=== PATIENT | male | born 1985 | race Hispanic/Latino ===

== ENCOUNTER 2021-07-04 09:43 | Inpatient (IN) | payer SELFPAY ==
[2021-07-04] VITALS (10 sets, daily range): BP systolic 135–185; BP diastolic 84–140
[~2021-07-04] VITALS: Ht 175.3 cm; Wt 108.4 kg
[2021-07-04] MEDS ORDERED: ASPIRIN 81MG CHEW TAB ONE (09:56)
[2021-07-04] MEDS ORDERED: NITROGLYCERIN 50MG/D5W 250ML 1 BOT ONE (09:59)
[2021-07-04 10:01] LABS: BASOPHILS % (AUTO) 0.4 % (0.0-5.0); LYMPHOCYTES % (AUTO) 26.9 % (21.0-51.0); MEAN CORPUSCULAR HEMOGLOBIN 29.5 pg (27.0-33.0); MEAN CORPUSCULAR VOLUME 86.8 fL (79-99); MONOCYTES % (AUTO) 5.6 % (3.0-13.0); NEUTROPHILS % (AUTO) 61.6 % (40.0-77.0); PLATELET COUNT (AUTO) 355 K/uL (130-400); RED BLOOD CELL COUNT(AUTO) 4.84 MIL/uL (4.50-6.20); RED CELL DISTRIBUTION WIDTH 13.2 % (11.0-15.5); WHITE BLOOD COUNT (AUTO) 10.4 K/uL (4.8-10.8)
[2021-07-04] MEDS: ASPIRIN 81MG CHEW TAB PO SCH (10:08)
[2021-07-04] MEDS: NITROGLYCERIN 50MG/D5W 250ML 250 BOT IV SCH ×2 (10:09→23:00)
[2021-07-04 10:13] LABS: CREATININE 1.2 mg/dL (0.5-1.5); POTASSIUM 3.6 mmol/L (3.5-5.1)
[2021-07-04 10:15] LABS: INR 0.95 (0.85-1.15); PROTHROMBIN TIME 10.4 SEC (9.6-11.6)
[2021-07-04 10:16] LABS: PARTIAL THROMBOPLASTIN TIME 26.5 SEC (26.3-35.5)
[2021-07-04 10:18] LABS: ALBUMIN 3.8 g/dL (3.5-5.0); BILIRUBIN,TOTAL 0.2 mg/dL (0.2-1.0); TOTAL PROTEIN, SERUM 7.4 g/dL (6.0-8.3)
[2021-07-04 10:28] LABS: B-TYPE NATRIURETIC PEPTIDE 88 pg/mL (0-100)
[2021-07-04 12:15] LABS: AMPHET/METH SCREEN,URINE NEGATIVE (NEGATIVE); BARBITURATE SCREEN, URINE NEGATIVE (NEGATIVE); BENZODIAZEPINES SCREEN,URINE NEGATIVE (NEGATIVE); CANNABINOID SCREEN,URINE POSITIVE (NEGATIVE); COCAINE SCREEN,URINE POSITIVE (NEGATIVE); OPIATE SCREEN,URINE NEGATIVE (NEGATIVE); PHENCYCLIDINE SCREEN,URINE NEGATIVE (NEGATIVE)
[2021-07-04 12:22] LABS: APPEARANCE,URINE Clear (CLEAR); BILIRUBIN,URINE Negative (NEGATIVE); COLOR,URINE Yellow (YELLOW); GLUCOSE, URINE (UA) Negative (NEGATIVE); KETONES,URINE Negative (NEGATIVE); LEUKOCYTE ESTERASE ,URINE Negative (NEGATIVE); NITRATE,URINE Negative (NEGATIVE); OCCULT BLOOD,URINE Negative (NEGATIVE); PROTEIN,URINE Negative (NEGATIVE); UROBILINOGEN,URINE 0.2 mg/dL (0.2-1.0)
[2021-07-04 12:34] LABS: HEMOGLOBIN A1C 5.6 % (4.0-6.0)
[2021-07-04] MEDS: ATORVASTATIN 20 MG TABLET PO SCH (20:14)
[2021-07-04] MEDS ORDERED: HYDROCODONE/ACETAMINOPHEN 5/325 MG TAB PO ONE (22:30)
[2021-07-05] VITALS (32 sets, daily range): BP systolic 122–184; BP diastolic 79–116
[2021-07-05 05:45] LABS: BASOPHILS % (AUTO) 0.4 % (0.0-5.0); EOSINOPHILS % (AUTO) 0.9 % (0.0-8.0); HEMATOCRIT 39.1 % (42-54); LYMPHOCYTES % (AUTO) 18.3 % (21.0-51.0); MEAN CORPUSCULAR HEMOGLOBIN 29.5 pg (27.0-33.0); MEAN CORPUSCULAR VOLUME 86.7 fL (79-99); MONOCYTES % (AUTO) 5.3 % (3.0-13.0); NEUTROPHILS % (AUTO) 74.8 % (40.0-77.0); PLATELET COUNT (AUTO) 337 K/uL (130-400); RED BLOOD CELL COUNT(AUTO) 4.51 MIL/uL (4.50-6.20); RED CELL DISTRIBUTION WIDTH 13.3 % (11.0-15.5); WHITE BLOOD COUNT (AUTO) 14.3 K/uL (4.8-10.8)
[2021-07-05 05:52] LABS: CREATININE 1.1 mg/dL (0.5-1.5); POTASSIUM 3.2 mmol/L (3.5-5.1)
[2021-07-05] MEDS ORDERED: KCL 20 MEQ ERTAB PO PRN (06:30)
[2021-07-05] MEDS: POTASSIUM CHLORIDE 10% ELIXIR 20 MEQ/15 ML UDCUP PO PRN ×2 (08:12→10:47)
[2021-07-05] MEDS: ASPIRIN 81MG CHEW TAB PO SCH (08:13)
[2021-07-05] MEDS: ASPIRIN 81 MG EC TAB PO SCH (08:13)
[2021-07-05] MEDS: LABETALOL HCL 200 MG TABLET PO SCH ×2 (09:16→19:55)
[2021-07-05] MEDS: LABETALOL 20MG SYG IV PRN (13:59)
[2021-07-05] MEDS: ATORVASTATIN 20 MG TABLET PO SCH (19:55)
[2021-07-06] VITALS (8 sets, daily range): BP systolic 144–172; BP diastolic 87–115
[2021-07-06] MEDS: LABETALOL 20MG SYG IV PRN (06:46)
[2021-07-06] MEDS: ASPIRIN 81MG CHEW TAB PO SCH (07:32)
[2021-07-06] MEDS: ASPIRIN 81 MG EC TAB PO SCH (08:16)
[2021-07-06] MEDS ORDERED: HYDRALAZINE 25MG TABLET PO SCH (09:00)
[2021-07-06] MEDS ORDERED: AMLODIPINE 5 MG TAB PO SCH (09:00)
[2021-07-06] MEDS: LABETALOL HCL 200 MG TABLET PO SCH (09:42)
[2021-07-06] MEDS ORDERED: LABETALOL HCL 100 MG TABLET PO SCH (21:00)
== END 2021-07-06 10:45 | disposition left against medical advice (07) | DRG 305 ==
LOC: EDH 09:43 → EDHIP 09:44 → 2DH 07-05 07:15
PROVIDERS: ADMIT Hospitalist; ATTEND Hospitalist
DX: I16.1 Hypertensive emergency (principal); F14.10 Cocaine abuse, uncomplicated; F12.10 Cannabis abuse, uncomplicated; E66.9 Obesity, unspecified; I11.9 Hypertensive heart disease without heart failure; E87.6 Hypokalemia; F17.210 Nicotine dependence, cigarettes, uncomplicated; Z68.35 Body mass index [BMI] 35.0-35.9, adult; Z79.899 Other long term (current) drug therapy; Z91.19 Patient's noncompliance with other medical treatment and regimen; Z88.8 Allergy status to other drugs, medicaments and biological substances
CPT/HCPCS: 36415; 71045; 80048; 80053; 80061; 80305; 81003; 82550; 83036; 83735; 83874; 83880; 84443; 84484; 85025; 85610; 85730; 93005; 99291; G0378; J3490

== ENCOUNTER 2022-12-19 17:58 | Emergency (ER) | payer BC, OTHER ==
[~2022-12-19] VITALS: Ht 172.7 cm; Wt 104.3 kg
[2022-12-19 19:15] LABS: APPEARANCE,URINE CLEAR (CLEAR); BILIRUBIN,URINE NEGATIVE (NEGATIVE); COLOR,URINE LIGHT-YELLOW (YELLOW); GLUCOSE, URINE (UA) NEGATIVE (NEGATIVE); KETONES,URINE NEGATIVE (NEGATIVE); LEUKOCYTE ESTERASE ,URINE NEGATIVE Leu/uL (NEGATIVE); NITRATE,URINE NEGATIVE (NEGATIVE); OCCULT BLOOD,URINE NEGATIVE (NEGATIVE); PH,URINE 5.5 (5.0-8.0); PROTEIN,URINE NEGATIVE (NEGATIVE); UROBILINOGEN,URINE 0.2 mg/dL (0.2-1.0)
[2022-12-19 19:19] LABS: MUCUS,URINE RARE LPF (None Seen); SQUAMOUS EPITHELIAL CELL,UR RARE /HPF (0-2); WBC,URINE 0-1 /HPF (0-1)
[2022-12-19 19:28] LABS: BASOPHILS % (AUTO) 0.3 % (0.0-5.0); EOSINOPHILS % (AUTO) 0.5 % (0.0-8.0); HEMATOCRIT 40.7 % (42-54); LYMPHOCYTES % (AUTO) 14.2 % (21.0-51.0); MEAN CORPUSCULAR HEMOGLOBIN 29.8 pg (27.0-33.0); MEAN CORPUSCULAR HGB CONC 33.7 g/dL (32.0-36.0); MEAN CORPUSCULAR VOLUME 88.5 fL (79-99); MONOCYTES % (AUTO) 3.5 % (3.0-13.0); PLATELET COUNT (AUTO) 286 K/uL (130-400); RED CELL DISTRIBUTION WIDTH 12.9 % (11.0-15.5); WHITE BLOOD COUNT (AUTO) 11.9 K/uL (4.8-10.8)
[2022-12-19 19:30] LABS: CREATININE 1.3 mg/dL (0.5-1.5); POTASSIUM 3.5 mmol/L (3.5-5.1)
[2022-12-19] MEDS ORDERED: NITROGLYCERIN 0.4 MG SL TAB SL PRN (19:30)
[2022-12-19 19:31] LABS: INR 1.02 (0.85-1.15); PROTHROMBIN TIME 11.1 SEC (9.6-11.6)
[2022-12-19 19:39] LABS: ALBUMIN 3.8 g/dL (3.5-5.0); TOTAL PROTEIN, SERUM 7.6 g/dL (6.0-8.3)
[2022-12-19 19:52] LABS: B-TYPE NATRIURETIC PEPTIDE 12 pg/mL (0-100)
[2022-12-19 23:22] LABS: AMPHET/METH SCREEN,URINE NEGATIVE (NEGATIVE); BARBITURATE SCREEN, URINE NEGATIVE (NEGATIVE); BENZODIAZEPINES SCREEN,URINE NEGATIVE (NEGATIVE); CANNABINOID SCREEN,URINE POSITIVE (NEGATIVE); COCAINE SCREEN,URINE POSITIVE (NEGATIVE); OPIATE SCREEN,URINE NEGATIVE (NEGATIVE); PHENCYCLIDINE SCREEN,URINE NEGATIVE (NEGATIVE)
[2022-12-19] MEDS ORDERED: NITR.4 SL (23:30)
[2022-12-19 23:51] VITALS: BP 128/78
== END 2022-12-19 23:52 | disposition home or self-care (01) ==
LOC: EDH 17:58
DX: F14.10 Cocaine abuse, uncomplicated (principal); R07.89 Other chest pain; I10 Essential (primary) hypertension; F17.200 Nicotine dependence, unspecified, uncomplicated; Z65.3 Problems related to other legal circumstances; Z88.6 Allergy status to analgesic agent
CPT/HCPCS: 36415; 71045; 80053; 80305; 81001; 83880; 84484; 85025; 85610; 93005